=== PATIENT | female | born 1995 | race African-American/Black ===

== ENCOUNTER 2018-08-18 06:43 | Day surgery (SDC) | payer BC ==
[~2018-08-18] VITALS: Ht 180.3 cm; Wt 76.0 kg
[2018-08-18] MEDS ORDERED: VALTREX 50500 MG/TAB PO (06:55)
[2018-08-18 07:27] VITALS: BP 125/71; PULSE 74; TEMP 98
[2018-08-18 08:35] VITALS: BP 123/57; PULSE 63
[2018-08-18 08:45] VITALS: BP 106/60; PULSE 50
[2018-08-18 09:00] VITALS: BP 117/74; PULSE 55
== END 2018-08-18 09:26 | disposition home or self-care (01) ==
LOC: SDCO 06:43
DX: K92.1 Melena (principal); K60.1 Chronic anal fissure; K59.00 Constipation, unspecified
CPT/HCPCS: J2250; J2405; J3010; J7030